=== PATIENT | female | born 1995 | race Two or more races ===

== ENCOUNTER 2018-06-05 16:14 | Emergency (ER) | payer SELFPAY ==
[~2018-06-05] VITALS: Ht 152.4 cm; Wt 52.6 kg
[2018-06-05 16:21] VITALS: BP 120/79
[2018-06-05 17:24] LABS: Urine Bacteria FEW /hpf (None Seen); Urine Blood 2+ /uL (Negative); Urine Mucus FEW (None Seen); Urine Specific Gravity 1.019 (1.001-1.035); Urine WBC 766 /hpf (0 - 5)
[2018-06-05] MEDS ORDERED: AZITHROMYCIN 250 MG TAB PO ONE (19:45)
[2018-06-05] MEDS ORDERED: PHENAZOPYRIDINE HCL 100 MG TAB PO ONE (19:45)
[2018-06-05] MEDS ORDERED: cefTRIAXone SOD 1,000 MG VL IM ONE (19:45)
== END 2018-06-05 20:23 | disposition home or self-care (01) ==
LOC: ER 16:20
DX: N39.0 Urinary tract infection, site not specified (principal)
CPT/HCPCS: 81001; 81025; 96372; 99283; J0696

== ENCOUNTER 2018-09-19 19:45 | Emergency (ER) | payer MEDICAID ==
[~2018-09-19] VITALS: Ht 154.9 cm; Wt 57.2 kg
[2018-09-19 20:46] LABS: Urine Bacteria NONE SEEN /hpf (None Seen); Urine Blood Negative /uL (Negative); Urine Specific Gravity 1.026 (1.001-1.035); Urine WBC 5 /hpf (0 - 5)
[2018-09-19 21:22] LABS: Basophils # (auto) 0 uL; Basophils % (auto) 0.7 % (0.0-2.0); Eosinophils # (auto) 0.2 uL; Eosinophils % (auto) 3.8 % (0.0-7.0); Hematocrit 37.1 % (36.0-46.0); Hemoglobin 13.3 g/dL (12.2-16.2); Lymphocytes # (auto) 3.1 uL; Lymphocytes % (auto) 49.3 % (10.0-50.0); Mean Corpuscular Hemoglobin 32.1 pg (28.0-32.0); Mean Corpuscular Hgb Conc. 35.9 g/dL (32.0-36.0); Mean Corpuscular Volume 89.4 fL (80.0-100.0); Monocytes # (auto) 0.5 uL; Monocytes % (auto) 7.8 % (0.0-12.0); Neutrophils # (auto) 2.4 uL; Neutrophils % (auto) 38.4 % (37.0-80.0); Nucleated Red Blood Cells % 0.1 %; Platelet Count (auto) 219 10^3/uL (140-450); Red Blood Cells 4.15 10^6/uL (4.0-5.20); Red Cell Distribution Width 12.5 % (11.8-14.3); White Blood Cell 6.2 10^3/uL (4.4-10.8)
[2018-09-19 21:40] LABS: INR 0.98 (0.9-1.15); Partial Thromboplastin Time 26.8 sec (23.64-32.05)
[2018-09-19 21:42] LABS: Anion Gap 4 (5-15); Blood Urea Nitrogen 20 mg/dL (7-18); Calcium 8.6 mg/dL (8.5-10.1); Carbon Dioxide 27 mmol/L (21-32); Chloride 109 mmol/L (98-107); Glucose 91 mg/dL (74-106); Magnesium 2.3 mg/dL (1.6-2.6); Potassium 4.2 mmol/L (3.5-5.1); Sodium 140 mmol/L (136-145)
[2018-09-19 21:48] LABS: Alanine Aminotransferase 22 U/L (13-56); Alkaline Phosphatase 73 U/L (45-117); Aspartate Aminotransferase 11 U/L (15-37); BUN/Creatinine Ratio 28.6; Bilirubin, Total 0.4 mg/dL (0.2-1.0); GFR African American 135 mL/min; GFR Non-African American 111 mL/min; Total Protein 7.6 g/dL (6.4-8.2)
[2018-09-20 02:54] VITALS: BP 124/80
== END 2018-09-20 03:37 | disposition home or self-care (01) ==
LOC: ER 19:50
DX: G51.0 Bell's palsy (principal); R07.9 Chest pain, unspecified
CPT/HCPCS: 36415; 70450; 71046; 80053; 81001; 81025; 83735; 83880; 84484; 85025; 85610; 85730; 93005

== ENCOUNTER 2018-09-21 12:26 | Emergency (ER) | payer MEDICAID ==
[2018-09-21 13:53] VITALS: BP 136/86
== END 2018-09-21 14:20 | disposition home or self-care (01) ==
LOC: ER 12:31
DX: F41.1 Generalized anxiety disorder (principal); G51.0 Bell's palsy
CPT/HCPCS: 71046; 93005

== ENCOUNTER 2024-02-15 18:16 | Emergency (ER) | payer MEDICAID ==
[~2024-02-15] VITALS: Ht 157.5 cm; Wt 66.5 kg
[2024-02-15 19:28] VITALS: BP 135/84; PULSE 90; RESP 18; TEMP 98.7
[2024-02-15] MEDS ORDERED: CEPH500C PO (19:33)
[2024-02-15] MEDS ORDERED: ACET500T58 PO (19:33)
--- NOTE | 2024-02-15 19:33 | ED.PDOC ---
History of Present Illness(SKN HPI Comments 28-year-old female presents to ER for wound check. Patient states that she had a delivery on 01/17/24 and today noticed partial wound dehiscence to area of incision site of left lower abdomen with minimal serosanguineous drainage and presents to ER today for wound check. States her OBGYN is Dr. Queen and is following up with her OBGYN in 13 days. She reports mild pain localized to area of dehiscence site only. Denies use of medications for current symptoms. Patient presents to ER ambulatory on arrival, with steady gait, in no distress with vitals stable. Denies fevers, body aches, chills, nausea/vomiting, pelvic pain, trauma/injury, heavy lifting, changes in urination/BM or any further symptoms/complaints Time Seen by MD: 18:37 Primary Care Provider: JAYLENEK History of Present Illness: Nurses Notes, Medications, Allergies Allergies: Coded Allergies: NO KNOWN ALLERGIES (Unverified , 06/05/18) Home Meds Active Scripts Acetaminophen (Acetaminophen) 500 Mg Tab, 500 MG PO Q4HPRN, #30 TAB 0 Refills Prov:FAUSTO ESPINO 02/15/24 Cephalexin Monohydrate (Cephalexin) 500 Mg Cap, 1 CAP PO BID for 7 Days, #14 CAP 0 Refills Prov:FAUSTO ESPINO 02/15/24 Information Source: Patient Past Medical History PAST MEDICAL HISTORY: Anxiety Surgical History: (01-17-24) PAPER FOLDER History: No Pertinent PAPER FOLDER History Family History Family History: Unknown Social History Smoker: Non-Smoker Alcohol: Denies ETOH Use Drugs: Denies Drug Use Lives In: Home Constitutional: denies: chills, diaphoresis, fatigue, fever, malaise, sweats, weakness, others EENTM: denies: blurred vision, double vision, ear bleeding, ear discharge, ear drainage, ear pain, ear ringing, eye pain, eye redness, hearing loss, mouth pain, mouth swelling, nasal discharge, nose bleeding, nose congestion, nose pain, photophobia, tearing, throat pain, throat swelling, voice changes, others Respiratory: denies: cough, hemoptysis, orthopnea, SOB at rest, shortness of breath, SOB with excertion, stridor, wheezing, others Cardiovascular: denies: chest pain, dizzy spells, diaphoresis, Dyspnea on exertion, edema, irregular heart beat, left arm pain, lightheadedness, palpitations, PND, syncope, others Gastrointestinal: reports: others (As stated in HPI) Genitourinary: denies: abnormal vagina bleeding, burning, dyspareunia, dysuria, flank pain, frequency, hematuria, incontinence, pain, , vagina discharge, urgency, others Neurological: denies: dizziness, fainting, headache, left sided numbness, left sided weakness, numbness, paresthesia, pre-existing deficit, right sided numbness, right sided weakness, seizure, speech problems, tingling, tremors, weakness, others Musculoskeletal: denies: back pain, gout, joint pain, joint swelling, muscle pain, muscle stiffness, neck pain, others Integumetry: reports: others (As stated in HPI) Allergic/Immunocompromised: denies: Difficulty Healing, Frequent Infections, Hives, Itching, others Hematologic/Lymphatic: denies: anemia, blood clots, easy bleeding, easy bruising, swollen glands, others Endocrine: denies: excessive hunger, excessive sweating, excessive thirst, excessive urination, flushing, intolerance to cold, intolerance to heat, unexplained weight gain, unexplained weight loss, others Psychiatric: denies: anxiety, bipolar disorder, depression, hopeless, panic disorder, schizophrenia, sleepless, suicidal, others Physical Exam General Appearance: No Apparent Distress HEENT: PERRL/EOMI Neck: Full Range of Motion, Non-Tender, Normal Respiratory: Chest Non-Tender, Lungs Clear, No Accessory Muscle Use, No Respiratory Distress, Normal Breath Sounds Cardiovascular: No Murmur, No Gallop, Regular Rate/Rhythm Breast Exam: Deferred Gastrointestinal: No Organomegaly, No Pulsatile Mass, Normal Bowel Sounds, Soft, Other (1 cm partial wound dehiscence noted to incision site of left lower abdomen. Minimal swelling/erythema/TTP localized to wound edges only. No drainage noted. No rebound/guarding noted.) Genitalia: Deferred Pelvic: Deferred Rectal: Deferred Extremities: No calf tenderness, Normal capillary refill, Normal range of motion Neurologic: Alert, [place] [employer] II-XII nml as Tested, No Motor Deficits, Normal Affect, Normal Mood, No Sensory Deficits Cerebellar Function: Normal Reflexes: Normal Skin: Dry, Warm Peripheral Pulses: 2+ femoral (R), 2+ femoral (L), 2+ dorsalis pedis (R), 2+ dorsalis pedis (L), 2+ Radial (R), 2+ Radial (L), 2+ Brachial (R), 2+ Brachial (L) Lymphatic: No Adenopathy Was a procedure done? Was a procedure done?: No Sedation Sedation?: No Differential Diagnosis (INTG) Differential Diagnosis: Abscess Differential Diagnosis: Puncture Wound, Retained Foreign Body X-Ray, Labs, Meds, VS Vital Signs Date Time Temp Pulse Resp B/P (MAP) Pulse Ox O2 Delivery O2 Flow Rate FiO2 02/15/24 19:28 98.7 90 18 135/84 (101) 98 Patient in no distress during ER visit/prior to discharge Wound care/cleaning discussed and advised Advised on rest/no strenuous activity Advised to follow up with PCP and OBGYN in 1-2 days Patient verbalized understanding and agreeable with current plan of care Advised to return to ER immediately if symptoms worsen Time of 1ST Reevaluation: 19:02 Reevaluation 1ST: N/A Patient Education/Counseling: Diagnosis, Treatment, Prognosis, Need For Follow Up Family Education/Counseling: No Family Present Departure 1 Departure Time of Disposition: 19:22 Impression: Primary Impression: Cellulitis of abdominal wall Additional Impression: Wound dehiscence Disposition: 01 HOME / SELF CARE / HOMELESS Condition: Stable e-Prescriptions Acetaminophen (Acetaminophen) 500 Mg Tab 500 MG PO Q4HPRN, #30 TAB 0 Refills Prov: FAUSTO ESPINO 02/15/24 Cephalexin Monohydrate (Cephalexin) 500 Mg Cap 1 CAP PO BID for 7 Days, #14 CAP 0 Refills Prov: FAUSTO ESPINO 02/15/24 Discharged With: Self Critical Care Note Critical Care Time?: No Stability Stability form required: No Heart Score Heart Score: Heart Score Response (Comments) Value History N/A 0 EKG N/A 0 Age N/A 0 Risk Factors N/A 0 Troponin N/A 0 Total 0 FAUSTO ESPINO Feb 15, 2024 19:33
[2024-02-15 21:03] VITALS: O2SAT 98
== END 2024-02-15 23:14 | disposition home or self-care (01) ==
LOC: ER 18:16
DX: L03.311 Cellulitis of abdominal wall (principal); T81.30XA Disruption of wound, unspecified, initial encounter